=== PATIENT | female | born 1975 | race Caucasian/White ===

== ENCOUNTER → 2022-05-13 10:00 | Outpatient (BNVA) | payer SELFPAY | PROVIDERS: Visit Provider Obstetrics & Gynecology | DX: Z01.419 Encounter for gynecological examination (general) (routine) without abnormal findings (principal); Z12.39 Encounter for other screening for malignant neoplasm of breast; Z12.11 Encounter for screening for malignant neoplasm of colon | CPT/HCPCS: 87624 ==

== ENCOUNTER 2025-06-25 12:51 | Outpatient (CLI) | payer SELFPAY ==
[2025-06-25 13:30] VITALS: PULSE 88; RESP 18; O2SAT 98
== END 2025-06-25 12:52 | disposition home or self-care (01) ==
PROVIDERS: Visit Provider Internal Medicine
DX: J44.9 Chronic obstructive pulmonary disease, unspecified (principal)
CPT/HCPCS: 94060; 94726; 94729